=== PATIENT | female | born 1970 | race Caucasian/White ===

== ENCOUNTER 2017-02-02 05:16 | Day surgery (SDC) | payer OTHER ==
[~2017-02-02] VITALS: Ht 157.5 cm; Wt 81.6 kg
[2017-02-02 05:30] VITALS: BP 133/86
--- NOTE | 2017-02-02 05:36 | NUR ---
PT TAKEN TO BED 5
[2017-02-02] MEDS ORDERED: ACET-2858 PO (05:48)
[2017-02-02] MEDS ORDERED: MEDR10TA PO (05:48)
[2017-02-02] MEDS ORDERED: IRON65TA11 PO (05:48)
[2017-02-02] MEDS ORDERED: ASCO500T45 PO (05:48)
--- NOTE | 2017-02-02 05:48 | NUR ---
PT BIB FAMILY C/O LOW ABD PAIN S/P VAG BLEEDING FOR 4 MONTHS, SEEN BY DR NAMRATA PATEL LAST TUESDAY AND FOR D/C.PT DENIES ANY TRAUMA. PT DENIES N/V/D; SKIN IS INTACT, PALE/WARM/DRY; AAOX4, PERRL, WITH EVEN AND STEADY GAIT; LUNGS CLEAR BL, BREATHING UNLABORED; HR EVEN AND REGULAR, BL PERIPHERAL PULSES PRESENT; BS ACTIVE X4, NO TENDERNESS TO PALPATION. PT DENIES ANY FEVER, CP, SOB, OR COUGH AT THIS TIME; PT STATES 7/10 PAIN AT THIS TIME; VSS; PATIENT POSITIONED FOR COMFORT; HOB ELEVATED; BEDRAILS UP X2; BED DOWN. ER MD TO ANUP[facility], ALL ORDER EXECUTED.
--- NOTE | 2017-02-02 05:49 | NUR ---
Dr. Mercado evaluating patient at bedside.
--- NOTE | 2017-02-02 05:57 | NUR ---
UA DONE, HCG NEG, BLOOD SENT TO LAB. IV 20GA RT A/C DONE.
[2017-02-02] MEDS ORDERED: NACL 0.9% 1,000 ML IV ONE (06:00)
--- NOTE | 2017-02-02 06:08 | NUR ---
Patient will be admitted to care of DR NAMRATA PATEL. Admited to Med/Surg. Will go to room 111A. Belongings list completed. Report to .
[2017-02-02 06:13] LABS: BASOPHILS # (AUTO) 0.1 K/uL (0.00-0.22); EOSINOPHILS # (AUTO) 0.2 K/uL (0-0.4); EOSINOPHILS % (AUTO) 2.7 % (0.0-4.0); HEMOGLOBIN 10.4 g/dL (12.0-16.0); LYMPHOCYTES # (AUTO) 1.2 K/uL (2.5-16.5); LYMPHOCYTES % (AUTO) 19.1 % (20.5-51.1); MEAN CORPUSCULAR HEMOGLOBIN 24 pg (27-31); MEAN CORPUSCULAR HGB CONC 30 g/dL (33-37); MEAN CORPUSCULAR VOLUME 78 fL (80-94); MONOCYTES # (AUTO) 0.4 K/uL (0.8-1.0); NEUTROPHILS # (AUTO) 4.2 K/uL (1.8-7.7); NEUTROPHILS % (AUTO) 71.2 % (42.2-75.2); PLATELET COUNT (AUTO) 336 K/uL (140-450); RED BLOOD CELL COUNT(AUTO) 4.34 MIL/uL (4.20-5.40); RED CELL DISTRIBUTION WIDTH 16.3 % (11.6-13.7); WHITE BLOOD COUNT (AUTO) 6.2 K/uL (4.8-10.8)
[2017-02-02 06:17] LABS: APPEARANCE,URINE CLEAR (CLEAR); BILIRUBIN,URINE NEGATIVE (NEGATIVE); BLOOD, URINE 2+ (NEGATIVE); COLOR,URINE YELLOW (YELLOW); LEUKOCYTE ESTERASE ,URINE NEGATIVE (NEGATIVE); NITRITE, URINE NEGATIVE (NEGATIVE); PH,URINE 5.5 (5.0-9.0); PROTEIN,URINE TRACE (NEGATIVE); UGLUCOSE NEGATIVE (NEGATIVE); UROBILINOGEN,URINE 0.2 EU/dL (0.2 - 1)
[2017-02-02 06:27] LABS: BACTERIA,URINE 1+ /HPF (None Seen); RBC,URINE 0-5 (RARE) /HPF (0-5); SQUAMOUS EPITHELIAL CELL,UR 4-10 (MOD) /LPF (0-3 (FEW)); WBC,URINE 0-5 (RARE) /HPF (0-5)
[2017-02-02 06:28] LABS: MUCUS,URINE 1+ /LPF (None Seen)
[2017-02-02] MEDS ORDERED: MORPHINE SULFATE 4 MG/ML SYR IM/IVP PRN (07:15)
[2017-02-02] MEDS ORDERED: IBUPROFEN 800 MG TAB PO PRN (07:15)
[2017-02-02] MEDS ORDERED: ONDANSETRON 4 MG/2 ML VIAL IVP PRN (07:15)
[2017-02-02] MEDS ORDERED: ACETAMINOPHEN/CODEINE 300/30MG 1 TAB PO PRN (07:15)
--- NOTE | 2017-02-02 07:25 | NUR ---
REPORT RECEIVED FROM [employer] TRAINER RAQUEL RN, PT ALREADY IN OR BEFORE ASSESSMENT DONE, PER REPORT INITIAL VITALS T 97.9, BP 106/67, HR 82, RR 18, SAT 92% RA, WILL ASSESS WHEN PT RETURNS FROM OR FOR D&C.
[2017-02-02] MEDS ORDERED: ONDANSETRON 4 MG/2 ML VIAL IVP ONE (07:30)
[2017-02-02] MEDS ORDERED: PROPOFOL 200 MG/20 ML VIAL IV ONE (07:30)
[2017-02-02] MEDS ORDERED: DEXAMETHASONE 4 MG/ML VIAL IVP ONE (07:30)
[2017-02-02] MEDS ORDERED: KETOROLAC 30 MG/ML VIAL IVP ONE (07:30)
[2017-02-02] MEDS ORDERED: SEVOFLURANE 250 ML BTL INH ONE (07:30)
[2017-02-02] MEDS ORDERED: fentaNYL 0.05 MG/ML VIAL ONE (07:38)
--- NOTE | 2017-02-02 08:25 | NUR ---
PT RETURNED BACK FROM OR, PT AAOX4, RESP EVEN UNLABORED ON ROOM AIR, SPEAKS CLEARLY, MOVES ALL EXT, ABD SOFT, TENDER TO PALP, C/O 8/10 PAIN, WILL MEDICATE, VAG BLEEDING SMALL ON PAD IN PLACE, VSS DOCUMENTED, WILL CONTINUE TO MONITOR, PT ORIENTED TO ROOM AND FLOOR, CALL ANDRE WITHIN REACH, SIDE RAILS UP, BED LOCKED IN LOW POSITION.
[2017-02-02 08:36] VITALS: BP 110/70
[2017-02-02 09:45] VITALS: BP 120/76
--- NOTE | 2017-02-02 09:45 | NUR ---
PT UP OUT OF BED WITHOUT ASSIST, AMBULATES WITH STEADY GAIT TO BATHROOM, DENIES N/V, DENIES DIZZINESS OR LIGHTHEADEDNESS, REPORTS PAIN MINIMAL, PT RASHID CLEAR LIQ WELL, CRACKERS GIVEN, VSS, BP 120/76, HR 78, DAUGHTER AT BEDSIDE, WILL CONTINUE TO MONITOR.
[2017-02-02 10:49] VITALS: BP 123/76
--- NOTE | 2017-02-02 10:55 | NUR ---
DC INSTRUCTION GIVEN AND EXPLAINED TO PT, PT VERBALIZED FULL UNDERSTANDING, IV DC'D, CATH TIP INTACT, BLEEDING CONTROLLED, PT RASHID PO WELL WITH N/V, PAIN UNDERCONTROLL, DC HOME NOW WITH DAUGHTER.
== END 2017-02-02 10:55 | disposition home or self-care (01) ==
LOC: MED 05:16 → MDS 06:00 → MED 06:00 → MTU 06:00 → MDS 10:55
PROVIDERS: ATTEND Obstetrics & Gynecology
DX: N92.1 Excessive and frequent menstruation with irregular cycle (principal); E66.9 Obesity, unspecified; Z98.890 Other specified postprocedural states
CPT/HCPCS: 36415; 58120; 81001; 85025; 87081; 87086; 99285; J1100; J1885; J2270; J2405; J2704; J3010; J7120